=== PATIENT | female | born 1995 ===

== ENCOUNTER 2021-04-29 16:35 | Outpatient (CLI) | payer MEDICAID ==
[2021-04-29 18:24] VITALS: BP 110/63
== END 2021-04-29 22:02 | disposition home or self-care (01) ==
LOC: TRG 16:35 → APU 16:37 → TRG 22:02
PROVIDERS: ATTEND Obstetrics & Gynecology
DX: O21.2 Late vomiting of pregnancy (principal); R19.7 Diarrhea, unspecified; R10.9 Unspecified abdominal pain; Z3A.23 23 weeks gestation of pregnancy
CPT/HCPCS: 36415; 59025; 80053; 81001; 85025; 87086; 96365; 96366; 96368; J0690; J2405; J2765; J7120; J7121; 85007; 96360; 96361; 96374

== ENCOUNTER 2021-06-29 14:34 | Outpatient (CLI) | payer MEDICAID ==
[2021-06-29 18:40] VITALS: BP 107/58
== END 2021-06-29 19:50 | disposition home or self-care (01) ==
LOC: TRG 14:34 → APU 14:35 → TRG 19:50
DX: Z34.93 Encounter for supervision of normal pregnancy, unspecified, third trimester (principal); Z3A.32 32 weeks gestation of pregnancy
CPT/HCPCS: 59025; 82962

== ENCOUNTER 2021-08-09 21:11 | Inpatient (IN) | payer MEDICAID ==
[2021-08-09] MEDS ORDERED: LOPERAMIDE 2 MG CAP PO PRN (23:05)
[2021-08-09] MEDS ORDERED: OXYTOCIN 10 UNIT/1 ML INJ IM PRN (23:05)
[2021-08-09] MEDS ORDERED: LIDOCAINE (2%) 20 MG/1 ML VIAL 20 ML MDV INFILTRATI ONE (23:05)
[2021-08-09] MEDS ORDERED: BUTORPHANOL 2 MG/1 ML INJ IV PRN ×2 (23:05)
[2021-08-09] MEDS ORDERED: fentaNYL 100 MCG/2 ML INJ IV PRN (23:05)
[2021-08-09] MEDS ORDERED: ACETAMINOPHEN 325 MG TAB PO PRN (23:05)
[2021-08-09] MEDS ORDERED: miSOPROStol 200 MCG TAB PR PRN (23:05)
[2021-08-09] MEDS ORDERED: METHYLERGONOVINE MALEATE 0.2 MG/ML VIAL IM PRN (23:05)
[2021-08-09] MEDS ORDERED: AMPICILLIN/NS 2 GM/100 ML 2 GM/100 ML BAG IV ONE (23:05)
[2021-08-09] MEDS ORDERED: TERBUTALINE 1 MG/1 ML INJ SUB-Q PRN (23:05)
[2021-08-09] MEDS ORDERED: CARBOPROST TROMETHAMINE 250 MCG/1 ML INJ IM PRN (23:05)
[2021-08-09] MEDS ORDERED: MINERAL OIL 30 ML ORAL LIQD PO PRN (23:05)
[2021-08-09] MEDS ORDERED: LACTATED RINGERS 1,000 ML IV SCH (23:15)
--- NOTE | 2021-08-09 23:17 | History and Physical Report ---
History of Present Illness Date of examination: 08/09/21 Date of admission: 08/09/21 Chief complaint: C/O UC AND DECREASED FM SINCE THIS AM History of present illness: presents to [facility] @ 37.6wks with c/o decrease FM and uc since this am. She denied VB or LOF. Pt states she initiated her PNC at [facility]– [place] office @ approx 20+ wks gestation. She was co managed by REBECCA for GDM and was started on Insulin last wk. She states her FSBS have been wnl since then. Pt reports a hx of GDM with all pregs and a hx of birthing 9+ lb infants vaginally. She says [facility] told her baby's EFW was 6+lbs last wk. Pt denies any other obs, medical, or social problems. Family hx of DM. Pt's GBS is unknown. No PNRs are available. Pt was found to be in early labor and was admitted after consulting with Dr Polanco. BPP 05/06, MARIA DEL CARMEN 6.5, EFW 10.lbs 7oz. Past History Past Medical History: other (GDM, OBESITY) Past Surgical History: no surgical history Family/Genetic History: diabetes Social history: no significant social history, full code - Obstetrical History Expected Date of Delivery: 08/24/21 Actual Gestation: 37 Week(s) 6 Day(s) : 3 Para: 2 Hx # Term Pregnancies: 2 Number of Living Children: 2 Medications and Allergies Allergies Allergy/AdvReac Type Severity Reaction Status Date / Time No Known Allergies Allergy Unverified 04/29/21 17:54 Active Meds: Active Medications Acetaminophen (Acetaminophen 325 Mg Tab) 650 mg PO Q4H PRN PRN Reason: Pain, Mild (1-3) Butorphanol Tartrate (Butorphanol 2 Mg/1 Ml Inj) 1 mg IV Q2H PRN PRN Reason: Pain, Moderate(4-6) LABOR PAIN Butorphanol Tartrate (Butorphanol 2 Mg/1 Ml Inj) 2 mg IV Q2H PRN PRN Reason: Pain , Severe (7-10) Carboprost Tromethamine (Carboprost Tromethamine 250 Mcg/1 Ml Inj) 250 mcg IM ONCE PRN PRN Reason: Uterine Bleeding Ephedrine Sulfate (Ephedrine Sulfate 50 Mg/1 Ml Inj) 10 mg IV Q2M PRN PRN Reason: Hypotension Fentanyl (Fentanyl 100 Mcg/2 Ml Inj) 100 mcg IV Q2H PRN PRN Reason: Pain,Severe (7-10) LABOR PAIN Oxytocin/Sodium Chloride (Pitocin/Ns 30 Unit/500ml) 30 units in 500 mls @ 2 mls/hr IV TITR DEMARCO; Protocol Lactated Ringer's (Lactated Ringers) 1,000 mls @ 125 mls/hr IV DIRECT DEMARCO Oxytocin/Sodium Chloride (Pitocin/Ns 30 Unit/500ml) 30 units in 500 mls @ 40 mls/hr IV TITR DEMARCO; Protocol Ampicillin Sodium (Ampicillin/Ns 1 Gm/50 Ml) 1 gm in 50 mls @ 100 mls/hr IV Q4H DEMARCO; Protocol Ampicillin Sodium (Ampicillin/Ns 2 Gm/100 Ml) 2 gm in 100 mls @ 100 mls/hr IV ONCE ONE; Protocol Stop: 08/10/21 00:04 Lidocaine (Lidocaine (2%) 20 Mg/1 Ml Vial 20 Ml Mdv) 20 ml INFILTRATI ONCE ONE Stop: 08/09/21 23:06 Loperamide HCl (Loperamide 2 Mg Cap) 2 mg PO ONCE PRN PRN Reason: give with Hemabate Methylergonovine Maleate (Methylergonovine Maleate 0.2 Mg/Ml Vial) 0.2 mg IM ONCE PRN PRN Reason: Uterine Bleeding Mineral Oil (Mineral Oil 30 Ml Oral Liqd) 30 ml PO QHS PRN PRN Reason: Constipation Misoprostol (Misoprostol 200 Mcg Tab) 800 mcg FL ONCE PRN PRN Reason: Uterine Bleeding Oxytocin (Oxytocin 10 Unit/1 Ml Inj) 10 unit IM ONCE PRN PRN Reason: Uterine Bleeding Terbutaline Sulfate (Terbutaline 1 Mg/1 Ml Inj) 0.25 mg SUB-Q ONCE PRN PRN Reason: Hyperstimulation/Hypertonicity Review of Systems All systems: negative Eyes: deferred Ears, nose, mouth and throat: deferred Breasts: normal Genitourinary: normal appearance Rectal Exam: deferred - Vital Signs Vital signs: Vital Signs Temp Pulse Resp BP Pulse Ox 98.8 F 94 H 12 129/75 97 08/09/21 21:28 08/09/21 21:28 08/09/21 21:28 08/09/21 21:28 11/11/21 21:28 Temp Pulse Resp BP Pulse Ox 98.8 F 95 H 12 129/75 97 08/09/21 21:28 08/09/21 22:14 08/09/21 21:28 08/09/21 21:34 08/09/21 22:14 - Physical Exam Breasts: Positive: normal Abdomen: Positive: normal appearance, soft, normal bowel sounds Genitourinary (Female): Positive: normal external genitalia, normal perenium Vulva: both: normal Vagina: Positive: normal moisture Uterus: Positive: enlarged, normal contour, other (ENLARGED) Adnexa: both: normal Extremities: Positive: normal - Obstetrical FHR: auscultation normal, category 1 Uterine Contraction Monitor Mode: External Cervical Dilatation: 4.5 Cervical Effacement Percentage: 50 station: -3 Uterine Contraction Pattern: Irregular Uterine Tone Measurement Phase: Resting Uterine Contraction Intensity: Mild Results Abnormal lab results 08/09/21 Range/Units 22:30 POC Glucose 112 H (70-105) mg/dL All other labs normal. Assessment and Plan A: IUP@ 37.6wks GDM Insulin controlled GBS unknown Macrosomia EFW 10 lbs 7oz MARIA DEL CARMEN 6.5 Obesity No PNR available P: Admit to L&D Accuchecks q2 hr until 6cm then q1 hr until delivery GBS protocal Notify NICU Continuous monitoring Pain med/Epidural prn Anticipate Obtain PNR in am Consulted Dr Polanco - Patient Problems (1) Supervision of normal IUP (intrauterine ) in multigravida Current Visit: Yes Status: Acute (2) GBS screening not performed Current Visit: Yes Status: Acute (3) Gestational diabetes mellitus (GDM) Current Visit: Yes Status: Acute
[2021-08-09] MEDS ORDERED: OXYTOCIN DRIP 30 UNITS/500 ML BAG IV SCH ×2 (23:45)
[2021-08-10 00:22] LABS: Basophils % (Auto) 0.2 % (0.0-1.8); Eosinophils % (Auto) 0.3 % (0.0-4.3); Hematocrit 39.2 % (30.3-42.9); Hemoglobin 12.6 gm/dl (10.1-14.3); Lymphocytes # (Auto) 2.6 K/mm3 (1.2-5.4); Lymphocytes % (Auto) 20.5 % (13.4-35.0); Mean Corpuscular HGB Conc 32 % (30-34); Mean Corpuscular Volume 78 fl (79-97); Monocytes # (Auto) 0.8 K/mm3 (0.0-0.8); Monocytes % (Auto) 6.7 % (0.0-7.3); Platelet Count 226 K/mm3 (140-440); Red Blood Count 5.05 M/mm3 (3.65-5.03)
[2021-08-10] MEDS ORDERED: DEXTROSE 50% IN WATER (25GM) 50 ML SYRINGE IV PRN (00:38)
[2021-08-10 00:43] LABS: Hepatitis C Virus Antibody Non-Reactive (NonReactive)
--- NOTE | 2021-08-10 00:43 | Event Note ---
Date: 08/10/21 After reading the CNMW Anjelica's note, I called and spoke with her and then the patient via phone concerning my plan for recommended C/Section with EFW>10lbs and pt declined aware of the risks, benefits and alternatives. Pt also admitted when I asked concerning some leakage of fluid though small amount and none today. Anjelica told to order ROM plus with MARIA DEL CARMEN at 6.5 now. Will do expectant mgt and hopefully records will come. Pt to also get SCDs and Anjelica notified as well. Pt counseled on tight glucose control while in labor and accucheck monitoring and tx as needed. All questions encouraged and answered. Per nurse FHR category I and pt with irreg contractions. Will continue amp coverage for unknow GBS.
[2021-08-10] MEDS ORDERED: INSULIN REGULAR, HUMAN 100 UNITS/1 ML SUB-Q SCH (01:00)
[2021-08-10] MEDS: CALCIUM CARBONATE 500 MG TAB CHEW PO SCH (01:24)
--- NOTE | 2021-08-10 01:34 | Ultrasound Report ---
ULTRASOUND OBSTETRIC LIMITED ULTRASOUND BIOPHYSICAL PROFILE INDICATION / CLINICAL INFORMATION: WELL BEING. Clinical Gestational Age (GA) in weeks, days: 38, 0 TECHNIQUE: Transabdominal. COMPARISON: None available. FINDINGS: BREATHING MOVEMENT = 2 GROSS BODY MOVEMENT = 2 TONE = 2 QUALITATIVE AMNIOTIC FLUID VOLUME = 2 TOTAL BIOPHYSICAL SCORE = 8/8 HEART RATE (beats per minute): 157 AMNIOTIC FLUID INDEX (cm) = 6.5 (normal = 7-24 cm) PRESENTATION: Cephalic. ADDITIONAL FINDINGS: Estimated sonographic age is 37 weeks 6 days. Estimated weight is 4739 g. IMPRESSION: 1. Biophysical Score = 8/8 2. Borderline low amniotic fluid index of 6.5 cm. Signer Name: Ozzie Landeros MD Signed: 08/10/2021 1:30 AM Workstation Name: [id number]
[2021-08-10] MEDS ORDERED: NalbUPHINE 10 MG/1 ML INJ IV PRN (02:49)
[2021-08-10] MEDS ORDERED: LACTATED RINGERS 1000 ML IV SOLN IV ONE (02:49)
[2021-08-10] MEDS ORDERED: ONDANSETRON 4 MG/2 ML INJ IV PRN ×3 (02:49→11:12)
[2021-08-10] MEDS ORDERED: ePHEDrine SULFATE 50 MG/1 ML INJ IV PRN (02:49)
[2021-08-10] MEDS ORDERED: NALOXONE 2 MG/2 ML INJ IV PRN (02:49)
[2021-08-10] MEDS ORDERED: diphenhydrAMINE 50 MG/ML VIAL IV PRN (02:49)
[2021-08-10] MEDS ORDERED: fentaNYL-BUPIV 2 MCG/ML-0.125% 200 MCG/100 ML BAG EPIDURAL SCH (03:00)
--- NOTE | 2021-08-10 03:23 | Anesthesia Consultation ---
Anesthesia Consult and Med Hx Date of service: 08/10/21 - Airway Anesthetic Teeth Evaluation: Good ROM Head & Neck: Adequate Mental/Hyoid Distance: Adequate Mallampati Class: Class III Intubation Access Assessment: Possibly Difficult - Pulmonary Exam CTA: Yes - Cardiac Exam Cardiac Exam: RRR - Pre-Operative Health Status ASA Pre-Surgery Classification: ASA2 Proposed Anesthetic Plan: Epidural - Pulmonary Hx Smoking: No Hx Asthma: No Hx Sleep Apnea: No - Cardiovascular System Hx Hypertension: No Hx Heart Attack/AMI: No Hx Angina: No - Central Nervous System Hx Seizures: No Hx Psychiatric Problems: No - Gastrointestinal Hx Gastroesophageal Reflux Disease: No - Endocrine Hx Renal Disease: No Hx Liver Disease: No Hx Insulin Dependent Diabetes: No Hx Non-Insulin Dependent Diabetes: Yes (gest) Hx Hypothyroidism: No Hx Hyperthyroidism: No - Hematic Hx Anemia: No Hx Sickle Cell Disease: No - Other Systems Hx Alcohol Use: No Hx Obesity: Yes
--- NOTE | 2021-08-10 03:24 | Progress Note ---
Labor Epidural - Labor Epidural Start Time: 03:08 Stop Time: 03:15 Performed by:: JOELLEN SIMON Procedure: Patient is requesting epidural for labor and pain. H&P, labs were reviewed. Patient IDed, H&P reviewed, all questions and concerns were answered, and consent was signed. Timeout was performed at bedside. Patient in sitting position. Sterile prep and drape was performed. 3ml of 1% lidocaine skin wheal at L[3]- L [4]. 17-gauge Tuohy epidural needle was advanced to loss of resistance with air technique 6cm. Negative CSF negative blood. Epidural catheter advanced to [11] centimeters. [negative] Aspiration [negative] test dose. Sterile dressing applied. Patient tolerated procedure.
[2021-08-10] MEDS ORDERED: AMPICILLIN/NS 1 GM/50 ML 1 GM/50 ML BAG IV SCH (04:00)
[2021-08-10] MEDS: ePHEDrine SULFATE 50 MG/1 ML INJ IV PRN ×2 (07:06→08:23)
[2021-08-10] MEDS ORDERED: BICITRA ORAL LIQD 30ML ONE ×2 (08:35→08:36)
[2021-08-10] MEDS ORDERED: FAMOTIDINE 20 MG/2 ML INJ IV ONE (08:35)
[2021-08-10] MEDS ORDERED: METOCLOPRAMIDE 10 MG/2 ML INJ ONE (08:35)
[2021-08-10] MEDS ORDERED: ceFAZolin/Water 2 GM/20 ML 2 GM/20 ML SYRINGE IV ONE (08:36)
[2021-08-10] MEDS ORDERED: LIDOCAINE 2%/EPINEPHRINE 1:200,000 VIAL (20 ML) INFILTRATI ONE (08:39)
[2021-08-10] MEDS ORDERED: ONDANSETRON 4 MG/2 ML INJ ONE ×2 (08:42)
[2021-08-10] MEDS ORDERED: WATER FOR IRRIG STERILE 1,500 ML BOTTLE IR ONE (08:59)
[2021-08-10] MEDS ORDERED: SODIUM CHLORIDE 0.9% IRR 1,500 ML BOTTLE IR ONE (08:59)
[2021-08-10] MEDS ORDERED: BUPIVACAINE/PF (0.25%) 2.5 MG/ML 30 ML VIAL INFILTRATI ONE ×2 (09:32→09:37)
[2021-08-10] MEDS ORDERED: dexAMETHasone 20 MG/5 ML VIAL ONE (09:32)
[2021-08-10] MEDS ORDERED: WITCH HAZEL/ GLYCERIN PAD TP PRN (10:29)
[2021-08-10] MEDS ORDERED: MORPHINE 4 MG/1 ML INJ IV PRN (10:29)
[2021-08-10] MEDS ORDERED: KETOROLAC 30 MG/1 ML INJ IV PRN (10:29)
[2021-08-10] MEDS ORDERED: LANOLIN/ZINC/DIMETHICONE (LANSINOH) 7 GM TP PRN (10:29)
[2021-08-10] MEDS ORDERED: PROMETHAZINE 25 MG RECT SUPP PR PRN (10:29)
[2021-08-10] MEDS ORDERED: SIMETHICONE 80 MG CHEW TAB PO PRN (10:29)
[2021-08-10] MEDS ORDERED: ACETAMINOPHEN 325 MG TAB PO PRN (10:29)
[2021-08-10] MEDS ORDERED: NALOXONE 0.4 MG/1 ML INJ IV PRN ×2 (10:29→11:12)
[2021-08-10] MEDS ORDERED: SENNOSIDES 8.6 MG TAB PO PRN (10:29)
[2021-08-10] MEDS ORDERED: MAGNESIUM HYDROXIDE (MOM) ORAL LIQD UDC PO PRN (10:29)
[2021-08-10] MEDS ORDERED: HYDROCORTISONE 25 MG RECTAL SUPP PR PRN (10:29)
--- NOTE | 2021-08-10 10:35 | Procedure Note ---
OB Delivery Note - Delivery Date of Delivery: 08/10/21 Surgeon: DANY ANNE JR Estimated blood loss: other (527 QBL) - Section Preop diagnosis: nonreassuring FHR tracing Postop diagnosis: same section procedure: section, primary low transverse Disposition: PACU Complications: hematoma (non expanding 3 cm right uterine incision angle hematoma) Narrative: Indication: 26-year-old G3, P2 at 38 weeks by stated DONTAE complicated by history of macrosomia x2, gestational diabetes on insulin, obesity presenting with decreased movement found to be in active labor at 4-5 cm. Patient noted to have nonreassuring heart tones and isolated terminal decelerations that recovered for primary for nonreassuring heart tones. Findings: Unable to fully exteriorize uterus. Clear fluid. Nuchal cord x 1 and true knot. Delivery of male infant at 0915 Weight 4130g Height 21 in APGARS 8/9 EBL 527 QBL IVF 1800 cc UOP 50 cc Procedure: Patient was taken to the operating room prepped and draped in the usual sterile fashion. Pfannenstiel skin incision was made and carried down to the underlying fascia. Fascia was incised and the incision was distended bilaterally. Rectus fascia was dissected off the rectus muscle superiorly and inferiorly. Peritoneum was identified and entered. Peritoneal incision extended superiorly and inferiorly. The bladder was visualized. Rishi retractor was placed to improve visualization. The bladder blade was placed. Uterine hysterotomy incision was made and extended bilaterally. The baby was delivered in the typical vertex fashion with the assistance of the vacuum. Baby was bulb suction at delivery. The cord was cut and clamped and handed off to the team. The placenta was delivered spontaneously. The uterus was unable to be exteriorized and uterus was cleared of all clots and debris. Uterine incision was closed with a 0 Vicryl in a running locked fashion. Good hemostasis was noted after 2 [id number] sutures applied to the uterine incision. A small 3 cm x 3 cm hematoma was noted at the right side of the incision that was noted to be non-expanding. Surgicel powder was applied to the uterine incision base to provide hemostasis. The urine was noted to be clear. Uterus, tubes, and ovaries were returned to the abdominal cavity. Bilateral gutters were cleared and the abdomen and pelvis were irrigated. Good hemostasis noted. The rectus muscle was reapproximated with 2-0 Vicryl. Attention was directed towards the rectus fascia which was reapproximated with 0 PDS in a running fashion. The subcutaneous tissue was irrigated and reapproximated with 2-0 Vicryl in a running fashion in 2 layers. Skin was closed with a 4-0 Vicryl in a subcuticular fashion. The procedure was completed and the patient tolerated the procedure well. All instruments and lap counts were correct x2. - A at 1 minute: 8 at 5 minutes: 9 Gender: Male
[2021-08-10] MEDS ORDERED: KETOROLAC 30 MG/1 ML INJ IV SCH (11:00)
[2021-08-10] MEDS ORDERED: OXYTOCIN DRIP 30 UNITS/500 ML BAG IV SCH (11:00)
[2021-08-10] MEDS ORDERED: HYDROmorphone 1 MG/1 ML INJ IV PRN ×2 (11:12)
--- NOTE | 2021-08-10 11:14 | Anesthesia Day of Surgery ---
Anesthesia Day of Surgery - Day of Surgery Patient Examined: Yes Patient H&P Reviewed: Yes Patient is NPO: Yes Beta Blockers: No Cardiac Clearance: No Pulmonary Clearance: No Noah's Test: Negative
--- NOTE | 2021-08-10 11:16 | Progress Note ---
Regional Anesthesia Block - Regional Anesthesia Block Start Time: 10:40 Stop Time: 10:48 Performed By:: ANGELITO KIMBLE Procedure: Patient consented for TAP block for post surgical pain management. Patient identified, monitors placed, and time out performed. TAP identified bilaterally via ultrasound. Skin prepped bilaterally with [chlorhexidine] and [22g stimuplex] needle advanced to the TAP. [Marcaine 0.25% 35ml] injected under ultrasound guidance on the [left] side. [Marcaine 0.25% 35ml] injected under ultrasound guidance on the [right] side. Negative aspiration every 5mL, No change in heart rate or rhythm. Patient tolerated the procedure well. No apparent complications seen.
--- NOTE | 2021-08-10 12:57 | Event Note ---
Date: 08/10/21 Insulin regimen on [facility] reports. 40N/14R AM, 16N at bedtime/16R at dinner PM. Will start half dose. 20N/8R AM 8N/8R PM.
--- NOTE | 2021-08-10 17:05 | Event Note ---
Date: 08/10/21 Syphilis Ab positive. Called lab and recyclable materials distributor states this is preliminary result and specimen has been sent out for confirmation.
[2021-08-10] MEDS: INSULIN REGULAR, HUMAN 100 UNITS/1 ML SUB-Q SCH ×2 (17:35→21:47)
[2021-08-10] MEDS: INSULIN NPH, HUMAN 100 UNIT/1 ML SUB-Q SCH (17:57)
--- NOTE | 2021-08-10 20:28 | Post Anesthesia Evaluation ---
- Post Anesthesia Evaluation Patient Participated: Yes Airway Patent: Yes Stable Respiratory Function: Yes Nausea/Vomiting: No Temp > 96.8F: Yes Pain Manageable: Yes Adequeate Hydration: Yes Anesthesia Complications: No Block Receding Appropriately: Yes Patient on Ventilator: No
[2021-08-11 00:01] LABS: Hematocrit 32.4 % (30.3-42.9); Hemoglobin 10.5 gm/dl (10.1-14.3)
[2021-08-11] MEDS: CALCIUM CARBONATE 500 MG TAB CHEW PO SCH (00:44)
[2021-08-11] MEDS: IBUPROFEN 800 MG TAB PO PRN ×3 (01:00→15:16)
[2021-08-11] MEDS: INSULIN REGULAR, HUMAN 100 UNITS/1 ML SUB-Q SCH ×6 (08:00→22:00)
[2021-08-11 08:48] LABS: Basophils % (Auto) 0.2 % (0.0-1.8); Eosinophils % (Auto) 0.1 % (0.0-4.3); Hematocrit 31.7 % (30.3-42.9); Hemoglobin 10.3 gm/dl (10.1-14.3); Lymphocytes # (Auto) 2.3 K/mm3 (1.2-5.4); Lymphocytes % (Auto) 16.6 % (13.4-35.0); Mean Corpuscular HGB Conc 32 % (30-34); Mean Corpuscular Volume 78 fl (79-97); Monocytes % (Auto) 7.4 % (0.0-7.3); Platelet Count 182 K/mm3 (140-440); Red Blood Count 4.07 M/mm3 (3.65-5.03); Red Cell Distribution Width 16.1 % (13.2-15.2)
[2021-08-11] MEDS: INSULIN NPH, HUMAN 100 UNIT/1 ML SUB-Q SCH ×2 (09:11→17:45)
--- NOTE | 2021-08-11 09:11 | Progress Note ---
Assessment and Plan - Patient Problems (1) S/P Current Visit: Yes Status: Acute Plan to address problem: Patient doing overall well post op day 1 status post primary . --Anticipate discharge in 24 to 48 hours (2) Gestational diabetes mellitus (GDM) Current Visit: Yes Status: Acute Plan to address problem: Continue insulin regimen: 20 NPH/8R AM 8NPH/8R PM. SSI with correction. Consistent carb diet. Subjective - Subjective Date of service: 08/11/21 Principal diagnosis: POD1 s/p PLTCS Interval history: Patient doing overall well now. Day 1 status post primary . Patient has been ambulating, urinate spontaneously. Pain well controlled. Infant in the NICU for glucose management. Patient reports: appetite normal, voiding normally, pain well controlled, ambulating normally Sharon: doing well, in NICU Objective - Vital Signs Latest vital signs: Vital Signs Temp Pulse Resp BP BP Pulse Ox Pulse Ox 08/11/21 08:30 98.0 F 79 18 122/75 99 08/11/21 04:33 98.5 F 84 20 98/61 97 08/11/21 02:00 18 08/11/21 01:16 98.2 F 66 20 135/76 98 08/11/21 01:00 18 08/10/21 21:41 97.9 F 75 20 107/71 96 08/10/21 20:00 98 08/10/21 19:04 18 08/10/21 18:34 16 08/10/21 16:40 98.2 F 78 20 127/75 97 08/10/21 15:52 16 08/10/21 12:30 98.0 F 78 18 131/74 96 100 08/10/21 11:37 98 08/10/21 11:30 75 18 124/82 96 08/10/21 11:15 82 23 115/79 97 08/10/21 11:00 79 22 118/80 96 08/10/21 10:45 85 21 117/79 96 08/10/21 10:35 98 F 78 22 111/78 96 Intake and Output 08/10/21 08/11/21 08/11/21 23:59 07:59 15:59 Output Total 900 Balance -900 Output: Urine 900 Suprapubic catheter 900 Other: Total, Output Amount 900 # Voids Suprapubic catheter 1 - Exam Abdomen: Present: normal appearance, soft, normal bowel sounds Uterus: Present: firm Incision: Present: dressed - Labs Labs: Abnormal lab results 08/10/21 08/10/21 08/10/21 Range/Units 12:43 16:29 21:37 WBC (4.5-11.0) K/mm3 MCV (79-97) fl MCH (28-32) pg RDW (13.2-15.2) % [place] % (Auto) (0.0-7.3) % [place] # (Auto) (0.0-0.8) K/mm3 Seg Neutrophils % (40.0-70.0) % Seg Neutrophils # (1.8-7.7) K/mm3 POC Glucose 175 H 168 H 162 H (70-105) mg/dL 08/11/21 Range/Units 08:09 WBC 14.0 H (4.5-11.0) K/mm3 MCV 78 L (79-97) fl MCH 25 L (28-32) pg RDW 16.1 H (13.2-15.2) % [place] % (Auto) 7.4 H (0.0-7.3) % [place] # (Auto) 1.0 H (0.0-0.8) K/mm3 Seg Neutrophils % 75.7 H (40.0-70.0) % Seg Neutrophils # 10.6 H (1.8-7.7) K/mm3 POC Glucose (70-105) mg/dL
[2021-08-11] MEDS: oxyCODONE /ACETAMINOPHEN 5-325MG TAB PO PRN ×3 (09:31→21:44)
[2021-08-12] MEDS: oxyCODONE /ACETAMINOPHEN 5-325MG TAB PO PRN (03:00)
[2021-08-12] MEDS: INSULIN REGULAR, HUMAN 100 UNITS/1 ML SUB-Q SCH ×4 (07:55→17:14)
[2021-08-12] MEDS: INSULIN NPH, HUMAN 100 UNIT/1 ML SUB-Q SCH ×2 (10:09→17:17)
[2021-08-12] MEDS: IBUPROFEN 800 MG TAB PO PRN (10:33)
[2021-08-12] MEDS: CALCIUM CARBONATE 500 MG TAB CHEW PO SCH (10:40)
--- NOTE | 2021-08-12 11:46 | Progress Note ---
Assessment and Plan A: /postop day 2 S/P primary LTCS. Anemia. GDM, on SSI and consistent carbohydrate diet. P: Iron supplementation. Encouraged patient to ambulate. Management of insulin per MD orders. Anticipate discharge home tomorrow if patient continues to do well. Subjective - Subjective Date of service: 08/12/21 Principal diagnosis: /postop day 2 S/P primary LTCS Interval history: GDM, on SSI and consistent carbohydrate diet. Patient reports: appetite normal, voiding normally, pain well controlled, flatus, ambulating normally, no dizzy ambulation, no nauseated Bernie: doing well Objective - Vital Signs Latest vital signs: Vital Signs Temp Pulse Resp BP Pulse Ox Pulse Ox 08/12/21 08:00 98 08/12/21 07:10 98.8 F 84 20 121/70 98 08/12/21 04:00 18 08/12/21 03:00 18 08/12/21 00:04 98.6 F 99 H 20 121/72 99 08/11/21 22:44 18 08/11/21 21:44 18 08/11/21 20:00 98 Intake and Output 08/11/21 08/12/21 08/12/21 23:59 07:59 15:59 Intake Total 120 Balance 120 Intake: Oral 120 Other: Total, Intake Amount 120 # Voids Void 1 - Exam Cardiovascular: Present: Regular rate Lungs: Present: Clear to auscultation Abdomen: Present: normal appearance, soft, normal bowel sounds. Absent: distention, tenderness, guarding, rigidity Uterus: Present: normal, firm, fundal height below umbilicus. Absent: bogginess, tenderness Extremities: Present: edema. Absent: tenderness Incision: Present: dry, dressed - Labs Labs: Abnormal lab results 08/11/21 08/12/21 Range/Units 16:44 11:40 POC Glucose 106 H 107 H (70-105) mg/dL
[2021-08-13] MEDS: IBUPROFEN 800 MG TAB PO PRN (00:30)
--- NOTE | 2021-08-13 07:38 | Progress Note ---
Assessment and Plan A: /postop day 3 S/P primary LTCS. Anemia. GDM. P: Discharge home today OK'd with Dr. Novak. Dr. Novak states to have patient check her sugars at home and bring log book to the clinic this week for review. /postop discharge instructions and warning signs discussed with patient. Advised patient to continue taking her vitamin and iron supplements at home. Advised patient re: care of incision and activity restrictions. Advised patient to avoid intercourse, lifting, housework, stair climbing, tub baths (patient may take showers). Advised patient to follow up at [facility] in 2 days and to bring glucose log book with her. Patient voiced understanding of all instructions. Subjective - Subjective Date of service: 08/13/21 Principal diagnosis: /postop day 3 S/P primary LTCS Interval history: Patient desires discharge home today. Patient reports: appetite normal, voiding normally, pain well controlled, flatus, ambulating normally, no dizzy ambulation, no bowel movement, no nauseated Objective - Vital Signs Latest vital signs: Vital Signs Temp Pulse Resp BP BP Pulse Ox Pulse Ox 08/13/21 01:30 18 08/13/21 01:00 99.3 F 61 18 115/78 97 08/13/21 00:30 18 08/12/21 16:42 98 08/12/21 16:41 97.9 F 84 20 126/81 98 08/12/21 11:42 98.5 F 86 20 113/70 95 08/12/21 08:00 98 Intake and Output 08/12/21 08/12/21 08/13/21 15:59 23:59 07:59 Intake Total 120 320 360 Balance 120 320 360 Intake: Oral 120 320 360 Other: Total, Intake Amount 120 120 120 # Voids Void 1 1 1 - Exam Cardiovascular: Present: Regular rate Lungs: Present: Clear to auscultation Abdomen: Present: normal appearance, soft, normal bowel sounds. Absent: distention, tenderness, guarding, rigidity Uterus: Present: normal, firm, fundal height below umbilicus. Absent: bogginess, tenderness Extremities: Present: normal, edema (mild bilateral pedal edema). Absent: tenderness Incision: Present: dry, intact - Labs Labs: Abnormal lab results 08/12/21 Range/Units 11:40 POC Glucose 107 H (70-105) mg/dL
--- NOTE | 2021-08-13 08:13 | Event Note ---
Date: 08/13/[address] Polanco re: patient and gave her report. Dr. Polanco states to discharge patient home this morning and have her follow up as an outpatient for confirmatory syphilis test result. Will put discharge summary in. Advised patient to follow up at [facility] in 2 days.
--- NOTE | 2021-08-13 08:18 | Discharge Summary ---
Providers - Providers Date of Admission: 08/09/21 23:05 Date of discharge: 08/13/21 Attending physician: TANVI GREEN 08/10/21 02:36 Consult to Infection Control Nurse [CONS] Routine Reason For Exam: positive syphilis result Primary care physician: YECENIA MANCUSO MD Hospitalization Reason for admission: active labor Delivery: Procedure: primary low transverse complications: none Discharge diagnosis: IUP at term delivered Hyndman baby: male Pertinent studies: Labs Hospital course: Stable hospital course significant for anemia and GDM and section. Patient awaiting confirmatory results of positive syphilis test. Dr. Green states patient to follow up as an outpatient for these results. Condition at discharge: Good Disposition: 01 HOME / SELF CARE / HOMELESS - Discharge Diagnoses (1) Term delivered Status: Acute (2) Anemia Status: Acute (3) Gestational diabetes mellitus (GDM) Status: Acute Plan - Discharge Medications Prescriptions: Ibuprofen [Motrin 800 MG tab] 800 mg PO Q6H PRN #30 tab PRN Reason: Pain, Mild (1-3) oxyCODONE /ACETAMINOPHEN [Percocet 5/325 mg] 1 tab PO Q6H PRN #30 tablet PRN Reason: Pain, Moderate (4-6) - Provider Discharge Summary Activity: routine, no sex for 6 weeks, no heavy lifting 4 weeks, no strenuous exercise Diet: routine Instructions: routine Additional instructions: Continue taking your vitamin and iron supplements at home. Check your blood sugars 4 times per day. Follow up at [facility] in 2 days; bring your blood sugar log with you; also get your confirmatory lab results when you are at the office. Call your doctor immediately for: * Fever > 100.5 * Heavy vaginal bleeding ( >1 pad per hour) * Severe persistent headache * Shortness of breath * Reddened, hot, painful area to leg or breast * Drainage or odor from incision. * Keep incision clean and dry at all times and follow doctor's instructions regarding bathing/showering - Follow up plan Follow up: DANY ANNE JR, MD [Staff Physician] - 48 Hours
[2021-08-13 09:11] VITALS: BP 129/83
[2021-08-13] MEDS: INSULIN REGULAR, HUMAN 100 UNITS/1 ML SUB-Q SCH ×3 (09:33→13:00)
[2021-08-13] MEDS: INSULIN NPH, HUMAN 100 UNIT/1 ML SUB-Q SCH (09:58)
[2021-08-13] MEDS ORDERED: FERROUS SULFATE 325 MG TAB PO SCH (10:00)
[2021-08-13] MEDS: CALCIUM CARBONATE 500 MG TAB CHEW PO SCH (10:01)
[2021-08-13] MEDS: oxyCODONE /ACETAMINOPHEN 5-325MG TAB PO PRN (10:12)
--- NOTE | 2021-08-13 11:53 | Event Note ---
Date: 08/13/21 Augmentin script added to discharge and pt and nurse notified due to moist steristrips on right side only and pt with known diabetes. Antibiotic will enhance wound healing. Confirmatory hospital FTA-ABS testing will not return per lab until 3-5days. Pt's records had RPR negative therefore I agree with discharge done today and plan of care given to Latha, the nurse and the patient.
== END 2021-08-13 18:00 | disposition home or self-care (01) | DRG 766 ==
LOC: TRG 21:11 → APU 21:13 → LD 23:05 → TRG 23:05 → OB 08-10 12:36
PROVIDERS: ADMIT Obstetrics & Gynecology; ATTEND Obstetrics & Gynecology
PROC: 10D00Z1 Extraction of Products of Conception, Low, Open Approach (ICD-10-PCS; principal; 2021-08-10)
PROC: 3E0T3BZ Introduction of Anesthetic Agent into Peripheral Nerves and Plexi, Percutaneous Approach (ICD-10-PCS; 2021-08-10)
PROC: 3E0R3BZ Introduction of Anesthetic Agent into Spinal Canal, Percutaneous Approach (ICD-10-PCS; 2021-08-10)
PROC: 00HU33Z Insertion of Infusion Device into Spinal Canal, Percutaneous Approach (ICD-10-PCS; 2021-08-10)
DX: O24.429 Gestational diabetes mellitus in childbirth, unspecified control (principal); Z3A.37 37 weeks gestation of pregnancy; Z37.0 Single live birth; O36.63X0 Maternal care for excessive fetal growth, third trimester, not applicable or unspecified; O99.214 Obesity complicating childbirth; O90.2 Hematoma of obstetric wound; O76 Abnormality in fetal heart rate and rhythm complicating labor and delivery; O69.81X0 Labor and delivery complicated by cord around neck, without compression, not applicable or unspecified; O90.81 Anemia of the puerperium; Z20.822 Contact with and (suspected) exposure to COVID-19
CPT/HCPCS: 36415; 59025; 76815; 76819; 82962; 84112; 85014; 85018; 85025; 85027; 86592; 86593; 86706; 86762; 86780; 86803; 86850; 86900; 86901; 87806; G0378; J2354; J3490; Q9967; J0290; J1100; J1815; J1885; J2270; J2405; J7120; U0003